=== PATIENT | male | born 1990 | race Caucasian/White ===

== ENCOUNTER 2017-08-01 17:49 | Emergency (ER) | payer SELFPAY ==
[2017-08-01] MEDS ORDERED: Lidocaine 1% 20 ML MDV ONE (17:55)
[2017-08-01] MEDS ORDERED: Bacitracin Zinc 1 Packet ONE (18:11)
== END 2017-08-01 18:20 | disposition home or self-care (01) ==
LOC: NAV ERS 17:49
DX: S61.511A Laceration without foreign body of right wrist, initial encounter (principal); F10.129 Alcohol abuse with intoxication, unspecified; F17.210 Nicotine dependence, cigarettes, uncomplicated; W26.8XXA Contact with other sharp object(s), not elsewhere classified, initial encounter
CPT/HCPCS: 12001; J2001

== ENCOUNTER 2017-12-01 14:04 | Emergency (ER) | payer OTHER, SELFPAY | END 2017-12-01 14:42 | disposition home or self-care (01) | LOC: NAV ERS 14:04 | DX: H65.02 Acute serous otitis media, left ear (principal); F17.210 Nicotine dependence, cigarettes, uncomplicated | CPT/HCPCS: 99282 ==

== ENCOUNTER 2018-09-23 08:17 | Emergency (ER) | payer SELFPAY ==
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
== END 2018-09-23 09:41 | disposition home or self-care (01) ==
LOC: NAV ERS 08:17
DX: S00.03XA Contusion of scalp, initial encounter (principal); S16.1XXA Strain of muscle, fascia and tendon at neck level, initial encounter; F17.210 Nicotine dependence, cigarettes, uncomplicated; V43.62XA Car passenger injured in collision with other type car in traffic accident, initial encounter
CPT/HCPCS: 70450; 72125

== ENCOUNTER 2020-10-31 07:11 | Emergency (ER) | payer OTHER, SELFPAY ==
[2020-10-31] MEDS ORDERED: Ondansetron ODT 4 MG TAB ONE (07:30)
[2020-10-31 17:15] LABS: SARS-CoV-2 PCR by NAA Not Detected (NotDetected)
== END 2020-10-31 08:05 | disposition home or self-care (01) ==
LOC: NAV ERS 07:11
DX: R11.2 Nausea with vomiting, unspecified (principal); Z20.822 Contact with and (suspected) exposure to COVID-19; F17.290 Nicotine dependence, other tobacco product, uncomplicated
CPT/HCPCS: 87635; 99284; Q0162; U0003; U0005